=== PATIENT | male | born 1960 | race Caucasian/White ===

== ENCOUNTER → 2018-03-23 | Outpatient (CLI) | payer OTHER | END | disposition home or self-care (01) | LOC: LABWHC1 11:16 | PROVIDERS: ATTEND Midwife | DX: Z13.9 Encounter for screening, unspecified (principal) | CPT/HCPCS: 86900; 86901 ==

== ENCOUNTER 2018-07-01 12:04 | Emergency (ER) | payer OTHER ==
[2018-07-01 12:15] VITALS: RESP 18
[2018-07-01] MEDS ORDERED: DIPH,PERTUS(ACELL)TETVAC-LF 0.5 ML VIAL IM ONE (12:25)
--- NOTE | 2018-07-01 12:27 | ED ---
General Adult HPI - General Chief complaint: Extremity Injury, Upper Stated complaint: cut thumb off with saw Time Seen by Provider: 07/01/18 12:13 Source: patient Mode of arrival: ambulatory Limitations: no limitations - History of Present Illness Initial comments: Dictation was produced using [employer] dictation software. please excuse any grammatical, word or spelling errors. 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 Patient states he was operating a circular saw when the saw kicked back and cut the distal tip of his left thumb. Patient states this event occurred approximately 50 minutes prior to arrival. Patient when he pain. He did take the amputated portion and brought it with him. Patient is complaining of pain. Does not know when his last tetanus update was. The ROS documented in this emergency department record has been reviewed and confirmed by me. Those systems with pertinent positive or negative responses have been documented in the HPI. All other systems are other negative and/or noncontributory. PHYSICAL EXAM: General Impression: Alert and oriented x3, acute distress secondary to pain HEENT: Normocephalic atraumatic, extra-ocular movements intact, pupils equal and reactive to light bilaterally, mucous membranes moist. Cardiovascular: Heart regular rate and rhythm, S1&S2 audible, no murmurs, rubs or gallops Chest: Lungs clear to auscultation bilaterally, no rhonchi, no wheeze, no rales Abdomen: Bowel sounds present, abdomen soft, non-tender, non-distended, no organomegaly Musculoskeletal: Pulses present and equal in all extremities, no peripheral edema Motor: no focal deficits noted Neurological: CN II-XII grossly intact, no focal motor or sensory deficits noted Skin: Intact with no visualized rashes Psych: Normal affect and mood ED course: 57 yo male presents with traumatic amputation of the left distal thumb. Amputated portion was wrapped in gauze and soaked with normal saline. He was placed in a separate bag put on ice. Signs upon arrival are within acceptable limits. Tetanus updated. Wound was irrigated. Finger x-ray was performed showing numerous superficial fragments comminuted osseous fragments. Patient was placed in a bandage. Digital block was performed using 2% lidocaine. Patient experienced immediate relief after the digital block. Patient case was discussed in detail with ALYSIA koehler covering for Dr. Do. Recommend that patient be seen outpatient for amputation revision however did recommend patient to our local hand specialist [facility] digit reimplantation. Discussed patient case with Anne who is taking calls for Dr. Albarran recommends patient be seen outpatient for amputation revision. Discussed with patient that we can offer him transfer to [facility] were told they may be able to have a chance to reimplant is amputated finger. He requested that he just follow-up with hand specialist on Wednesday for amputation revision. Patient's tetanus was updated. Gelfoam was applied to the wound. Patient placed in a dressing. Patient given follow-up with hand specialist Dr. perdomo. Patient prescription for by mouth analgesics. Patient and family are understandable agreeable to plan and disposition. - Related Data Home Medications Medication Instructions Recorded Confirmed Multivitamins, Thera [Multivitamin 1 tab PO DAILY 07/01/18 07/01/18 (formulary)] Previous Rx's Medication Instructions Recorded HYDROcodone/APAP 5-325MG [[place] 1 tab PO Q6HR PRN 3 Days #12 tab 07/01/18 5-325] Allergies Allergy/AdvReac Type Severity Reaction Status Date / Time No Known Allergies Allergy Verified 07/01/18 12:44 Review of Systems ROS Statement: Those systems with pertinent positive or pertinent negative responses have been documented in the HPI. ROS Other: All systems not noted in ROS Statement are negative. Past Medical History Past Medical History: No Reported History History of Any Multi-Drug Resistant Organisms: None Reported Past Surgical History: No Surgical Hx Reported Past Psychological History: No Psychological Hx Reported Smoking Status: Current every day smoker Past Alcohol Use History: Daily Past Drug Use History: None Reported General Exam Limitations: no limitations Course Vital Signs 07/01/18 12:12 Temperature 97.5 F L Pulse Rate 67 Respiratory 18 Rate Blood Pressure 120/85 O2 Sat by Pulse 97 Oximetry Disposition Clinical Impression: Fingertip amputation Disposition: HOME SELF-CARE Condition: Good Instructions (If sedation given, give patient instructions): Finger Amputation (ED) Prescriptions: HYDROcodone/APAP 5-325MG [[place] 5-325] 1 tab PO Q6HR PRN 3 Days #12 tab PRN Reason: Severe Pain Is patient prescribed a controlled substance at d/c from ED?: Yes If prescribed controlled substance>3 days was MAPS reviewed?: Prescribed <3 Days Referrals: Stuart Albarran DO [Medical Doctor] - 07/04/18 Time of Disposition: 14:11
[2018-07-01] MEDS ORDERED: MORPHINE SULFATE 4 MG/ML SYRINGE IVP STA (12:39)
[2018-07-01] MEDS ORDERED: LIDOCAINE 2% INJ 20 MG/ML (20 ML MDV) SQ STA (12:45)
--- NOTE | 2018-07-01 12:52 | XR ---
EXAMINATION TYPE: XR finger LT DATE OF EXAM: 07/01/2018 COMPARISON: NONE HISTORY: Left thumb pain after injury with a saw TECHNIQUE: 3 views of the left thumb were obtained as well as a radiograph of an osseous fragment of the amputated left thumb on ice. FINDINGS: There is posttraumatic amputation of the tuft of the distal phalanx of the left first digit as well as posttraumatic indication of the surrounding soft tissues. There is comminution of the dis lizbeth fragments with superficial either osseous fragments at the palmar surface and ulnar surface or fo reign bodies. Old fracture site of the ulnar aspect of the proximal left phalanx of the thumb is also seen with very minimal degenerative change at the first carpometacarpal joint. On the second x-ray o f the amputated portion on ice there is and 11 mm osseous fragment. IMPRESSION: Osseous and soft tissue posttraumatic amputation of the distal tuft of the left first dig it with numerous remaining superficial fragments either representing comminuted osseous fragments or foreign bodies. An 11 mm this fragment is seen within the separate x-ray of the amputated fragment.
[2018-07-01] MEDS ORDERED: GELATIN SPONGE,ABSORB (LARGE) 1 EACH SPONGE TOPICAL STA (14:05)
--- NOTE | 2018-07-01 14:13 | ED ---
Disposition Clinical Impression: Fingertip amputation Disposition: HOME SELF-CARE Condition: Good Instructions (If sedation given, give patient instructions): Finger Amputation (ED) Prescriptions: Cephalexin [Keflex] 500 mg PO Q6HR 5 Days #20 cap HYDROcodone/APAP 5-325MG [[place] 5-325] 1 tab PO Q6HR PRN 3 Days #12 tab PRN Reason: Severe Pain Is patient prescribed a controlled substance at d/c from ED?: Yes If prescribed controlled substance>3 days was MAPS reviewed?: Prescribed <3 Days Referrals: Stuart Albarran DO [Medical Doctor] - 07/04/18
[2018-07-01 14:34] VITALS: BP 130/87; PULSE 59; TEMP 98.3
== END 2018-07-01 14:31 | disposition home or self-care (01) ==
LOC: EC 12:04
DX: S68.012A Complete traumatic metacarpophalangeal amputation of left thumb, initial encounter (principal); F17.200 Nicotine dependence, unspecified, uncomplicated; Z23 Encounter for immunization; W31.2XXA Contact with powered woodworking and forming machines, initial encounter
CPT/HCPCS: 73140; 90715; 99284; 64450; 96374; 90471; J2001; J2270

== ENCOUNTER → 2019-04-15 | Outpatient (CLI) | payer OTHER ==
[2019-04-15 08:57] LABS: Basophils # (A) 0.1 k/uL (0-0.2); Basophils % (A) 1 %; Eosinophils # (A) 0.2 k/uL (0-0.7); Eosinophils % (A) 4 %; HCT 54.6 % (39.0-53.0); HGB 18.2 gm/dL (13.0-17.5); Lymphocytes # (A) 1.7 k/uL (1.0-4.8); Lymphocytes % (A) 30 %; MCH 33.5 pg (25.0-35.0); MCHC 33.4 g/dL (31.0-37.0); MCV 100.3 fL (80.0-100.0); Mean Platelet Volume 7.6; Monocytes # (A) 0.5 k/uL (0-1.0); Monocytes % (A) 9 %; Neutrophils # (A) 3.1 k/uL (1.3-7.7); Neutrophils % (A) 54 %; Platelet Count 241 k/uL (150-450); RBC 5.44 m/uL (4.30-5.90); RDW 11.8 % (11.5-15.5); WBC 5.7 k/uL (3.8-10.6)
--- NOTE | 2019-04-15 14:10 | XR ---
EXAMINATION TYPE: XR chest 2V DATE OF EXAM: 04/15/2019 COMPARISON: 06/28/2009 HISTORY: COPD. Short of breath TECHNIQUE: FINDINGS: There is no heart failure nor confluent pneumonic infiltrate. Costophrenic angles are clear . Bony thorax is intact. There is old left-sided healed rib fracture. There is mild flattening of the diaphragm. IMPRESSION: There is probably some COPD. No acute lung disease. Normal heart. No change.
[2019-04-15 17:35] LABS: ALT 25 U/L (10-49); AST 27 U/L (14-35); African American GFR (CKD) 113.3 (60.0-200.0); Albumin/Globulin Ratio 2.15 (1.60-3.17); Alkaline Phosphatase 74 U/L (41-126); BUN/Creat Ratio 18.75 Ratio (12.00-20.00); Calcium 9.2 mg/dL (8.7-10.3); Chloride 104 mmol/L (96-109); Chol/HDL Ratio 2.35; Cholesterol 155 mg/dL (0-200); Glucose 89 mg/dL (70-110); Non-African American GFR(CKD) 97.8 (60.0-200.0); Potassium 4.7 mmol/L (3.5-5.5); Sodium 138 mmol/L (135-145); Total Bilirubin 0.6 mg/dL (0.3-1.2); Total Protein 6.3 g/dL (6.2-8.2); Triglycerides <50.0 mg/dL (0.0-149.0)
== END ==
LOC: LABWHC1 08:17
PROVIDERS: ATTEND Family Medicine
DX: J44.9 Chronic obstructive pulmonary disease, unspecified (principal); Z00.00 Encounter for general adult medical examination without abnormal findings; Z12.5 Encounter for screening for malignant neoplasm of prostate
CPT/HCPCS: 84439; 80061; 80053; 84443; 85025; 71046; 36415; G0103

== ENCOUNTER → 2020-02-12 | Outpatient (CLI) | payer OTHER | END | disposition home or self-care (01) | LOC: LABWHC1 14:42 | PROVIDERS: ATTEND Emergency Medicine | DX: Z20.828 Contact with and (suspected) exposure to other viral communicable diseases (principal) | CPT/HCPCS: U0003; C9803 ==

== ENCOUNTER → 2020-05-07 | Outpatient (CLI) | payer SELFPAY | END | disposition home or self-care (01) | LOC: LABWHC1 15:35 | PROVIDERS: ATTEND Emergency Medicine | DX: Z20.822 Contact with and (suspected) exposure to COVID-19 (principal) | CPT/HCPCS: U0003; C9803 ==

== ENCOUNTER 2020-05-13 09:55 | Observation (INO) | payer OTHER ==
--- NOTE | 2020-05-13 10:46 | ED ---
Fall HPI - General Chief Complaint: Fall Stated Complaint: syncope/hit head Time Seen by Provider: 05/13/20 10:15 Source: patient, family Mode of arrival: ambulatory - History of Present Illness Initial Comments: 59-year-old male presents today for chief complaint of syncopal episode. Patient states that this past Wednesday he had an episode where he was going to the bathroom and the next thing he remembers is waking up in the bathtub he states it appears that he fell backwards into the tub he states it is sore spot on the back his head and believes he struck it. He denies any neck pain nausea vomiting headache since. He states he has had occasional lightheadedness denies a specific pattern such as going from seated to standing. Patient denies any chest pain shortness of breath. Deep inspiration leg swelling or calf pain. Patient denies any history of cancer hemoptysis he denies any known cardiac disease. Patient states he has never day smoker. Denies any nausea vomiting abdominal pain mid or low back pain. Patient denies injury to the extremities. Pt states that his mother had lung cancer and a brain blood clot and he is concerned maybe something similar is occuring and thus came to ER> patient denies any localized weakness localized sensation deficit speech changes diplopia, vision loss. He states at times it seems blurred when he is lightheaded but not occurring currently. - Related Data Home Medications Medication Instructions Recorded Confirmed Albuterol Sulfate [Proair Hfa] 2 puff INHALATION RT-QID PRN 05/13/20 05/13/20 Tiotropium [place] [Spiriva] 1 cap INHALATION RT-DAILY 05/13/20 05/13/20 lisinopriL [Zestril] 10 mg PO DAILY 05/13/20 05/13/20 Allergies Allergy/AdvReac Type Severity Reaction Status Date / Time No Known Allergies Allergy Verified 05/13/20 10:54 Review of Systems ROS Statement: Those systems with pertinent positive or pertinent negative responses have been documented in the HPI. ROS Other: All systems not noted in ROS Statement are negative. Past Medical History Past Medical History: Hypertension History of Any Multi-Drug Resistant Organisms: None Reported Past Surgical History: No Surgical Hx Reported Past Psychological History: No Psychological Hx Reported Smoking Status: Current every day smoker Past Alcohol Use History: Daily Past Drug Use History: None Reported General Exam - General Exam Comments Initial Comments: General: The patient is awake and alert, in no distress Eye: Pupils are equal, round and reactive to light, extra-ocular movements are intact. No nystagmus. There is normal conjunctiva bilaterally. No signs of icterus. Ears, nose, mouth and throat: There are moist mucous membranes and no oral lesions. No raccoon or Amador sign Neck: The neck is supple, there is no tenderness or JVD. Cardiovascular: There is a regular rate and rhythm. No murmur, rub or gallop is appreciated. Respiratory: Lungs are clear to auscultation, respirations are non-labored, breath sounds are equal. No wheezes, stridor, rales, or rhonchi. Gastrointestinal: Soft, non-distended, non-tender abdomen without masses or organomegaly noted. There is no rebound or guarding present. No CVA tenderness. Musculoskeletal: Normal ROM, no tenderness. Strength 5/5. Sensation intact. Pulses equal bilaterally 2+. Neurological: A&O x 3. CN II-XII intact, There are no obvious motor or sensory deficits. Coordination appears grossly intact. Speech is normal. Skin: Skin is warm and dry and no rashes or lesions are noted. no midline tenderness or lesion of the cervical spine with full range of motion. No calf pain, no lower extremity swelling or calf swelling Psychiatric: Cooperative, appropriate mood & affect, normal judgment. 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 Pt does use ETOH. pt CXR clear. Troponin (-). Denies chest pain or dyspnea. pt CT brain c-spine (-) .no pain with rom of c-spine nor midline tenderness. patient case discussed with attending and PCP Reyes Downing who are agreeable to admission for cardiology consultation. Consultation placed and patient is agreeable to admission. - Lab Data Result diagrams: 05/13/20 11:47 05/13/20 10:42 Lab Results 05/13/20 05/13/20 05/13/20 Range/Units 10:42 10:42 10:42 WBC 6.2 (3.8-10.6) k/uL RBC 5.72 (4.30-5.90) m/uL Hgb 19.0 H (13.0-17.5) gm/dL Hct 57.2 H* (39.0-53.0) % MCV 100.0 (80.0-100.0) fL MCH 33.1 (25.0-35.0) pg MCHC 33.2 (31.0-37.0) g/dL RDW 12.8 (11.5-15.5) % Plt Count 222 (150-450) k/uL MPV 7.9 Neutrophils % 56 % Lymphocytes % 29 % Monocytes % 11 % Eosinophils % 2 % Basophils % 1 % Neutrophils # 3.4 (1.3-7.7) k/uL Lymphocytes # 1.8 (1.0-4.8) k/uL Monocytes # 0.7 (0-1.0) k/uL Eosinophils # 0.1 (0-0.7) k/uL Basophils # 0.1 (0-0.2) k/uL PT (9.0-12.0) sec INR (<1.2) APTT (22.0-30.0) sec D-Dimer (<0.60) mg/L FEU Sodium 137 (137-145) mmol/L Potassium 4.7 (3.5-5.1) mmol/L Chloride 102 (98-107) mmol/L Carbon Dioxide 26 (22-30) mmol/L Anion Gap 9 mmol/L BUN 15 (9-20) mg/dL Creatinine 0.79 (0.66-1.25) mg/dL Est GFR (CKD-EPI)AfAm >90 (>60 ml/min/1.73 sqM) Est GFR (CKD-EPI)NonAf >90 (>60 ml/min/1.73 sqM) Glucose 82 (74-99) mg/dL Calcium 9.5 (8.4-10.2) mg/dL Magnesium 2.1 (1.6-2.3) mg/dL Total Bilirubin 1.3 (0.2-1.3) mg/dL AST 36 (17-59) U/L ALT 27 (4-49) U/L Alkaline Phosphatase 66 (38-126) U/L Troponin I <0.012 (0.000-0.034) ng/mL Total Protein 7.6 (6.3-8.2) g/dL Albumin 4.6 (3.5-5.0) g/dL Urine Color Urine Appearance (Clear) Urine pH (5.0-8.0) Ur Specific [place] (1.001-1.035) Urine Protein (Negative) Urine Glucose (UA) (Negative) Urine Ketones (Negative) Urine Blood (Negative) Urine Nitrite (Negative) Urine Bilirubin (Negative) Urine Urobilinogen (<2.0) mg/dL Ur Leukocyte Esterase (Negative) 05/13/20 05/13/20 05/13/20 Range/Units 11:23 11:47 12:00 WBC 6.0 (3.8-10.6) k/uL RBC 5.47 (4.30-5.90) m/uL Hgb 18.6 H (13.0-17.5) gm/dL Hct 54.6 H (39.0-53.0) % MCV 99.9 (80.0-100.0) fL MCH 34.1 (25.0-35.0) pg MCHC 34.1 (31.0-37.0) g/dL RDW 12.4 (11.5-15.5) % Plt Count 220 (150-450) k/uL MPV 7.3 Neutrophils % % Lymphocytes % % Monocytes % % Eosinophils % % Basophils % % Neutrophils # (1.3-7.7) k/uL Lymphocytes # (1.0-4.8) k/uL Monocytes # (0-1.0) k/uL Eosinophils # (0-0.7) k/uL Basophils # (0-0.2) k/uL PT 10.2 (9.0-12.0) sec INR 0.9 (<1.2) APTT 23.5 (22.0-30.0) sec D-Dimer (<0.60) mg/L FEU Sodium (137-145) mmol/L Potassium (3.5-5.1) mmol/L Chloride (98-107) mmol/L Carbon Dioxide (22-30) mmol/L Anion Gap mmol/L BUN (9-20) mg/dL Creatinine (0.66-1.25) mg/dL Est GFR (CKD-EPI)AfAm (>60 ml/min/1.73 sqM) Est GFR (CKD-EPI)NonAf (>60 ml/min/1.73 sqM) Glucose (74-99) mg/dL Calcium (8.4-10.2) mg/dL Magnesium (1.6-2.3) mg/dL Total Bilirubin (0.2-1.3) mg/dL AST (17-59) U/L ALT (4-49) U/L Alkaline Phosphatase (38-126) U/L Troponin I (0.000-0.034) ng/mL Total Protein (6.3-8.2) g/dL Albumin (3.5-5.0) g/dL Urine Color Yellow Urine Appearance Clear (Clear) Urine pH 6.5 (5.0-8.0) Ur Specific [place] 1.018 (1.001-1.035) Urine Protein Negative (Negative) Urine Glucose (UA) Negative (Negative) Urine Ketones 1+ H (Negative) Urine Blood Negative (Negative) Urine Nitrite Negative (Negative) Urine Bilirubin Negative (Negative) Urine Urobilinogen <2.0 (<2.0) mg/dL Ur Leukocyte Esterase Negative (Negative) 05/13/20 Range/Units 12:00 WBC (3.8-10.6) k/uL RBC (4.30-5.90) m/uL Hgb (13.0-17.5) gm/dL Hct (39.0-53.0) % MCV (80.0-100.0) fL MCH (25.0-35.0) pg MCHC (31.0-37.0) g/dL RDW (11.5-15.5) % Plt Count (150-450) k/uL MPV Neutrophils % % Lymphocytes % % Monocytes % % Eosinophils % % Basophils % % Neutrophils # (1.3-7.7) k/uL Lymphocytes # (1.0-4.8) k/uL Monocytes # (0-1.0) k/uL Eosinophils # (0-0.7) k/uL Basophils # (0-0.2) k/uL PT (9.0-12.0) sec INR (<1.2) APTT (22.0-30.0) sec D-Dimer 1.35 H (<0.60) mg/L FEU Sodium (137-145) mmol/L Potassium (3.5-5.1) mmol/L Chloride (98-107) mmol/L Carbon Dioxide (22-30) mmol/L Anion Gap mmol/L BUN (9-20) mg/dL Creatinine (0.66-1.25) mg/dL Est GFR (CKD-EPI)AfAm (>60 ml/min/1.73 sqM) Est GFR (CKD-EPI)NonAf (>60 ml/min/1.73 sqM) Glucose (74-99) mg/dL Calcium (8.4-10.2) mg/dL Magnesium (1.6-2.3) mg/dL Total Bilirubin (0.2-1.3) mg/dL AST (17-59) U/L ALT (4-49) U/L Alkaline Phosphatase (38-126) U/L Troponin I (0.000-0.034) ng/mL Total Protein (6.3-8.2) g/dL Albumin (3.5-5.0) g/dL Urine Color Urine Appearance (Clear) Urine pH (5.0-8.0) Ur Specific [place] (1.001-1.035) Urine Protein (Negative) Urine Glucose (UA) (Negative) Urine Ketones (Negative) Urine Blood (Negative) Urine Nitrite (Negative) Urine Bilirubin (Negative) Urine Urobilinogen (<2.0) mg/dL Ur Leukocyte Esterase (Negative) Disposition Clinical Impression: Syncope Disposition: ADMITTED IP TO THIS [facility] Condition: Stable Is patient prescribed a controlled substance at d/c from ED?: No Time of Disposition: 12:19 Decision to Admit Reason: Admit from EC Decision Date: 05/13/20 Decision Time: 12:19
[2020-05-13 11:03] LABS: ALT 27 U/L (4-49); African American GFR (CKD) >90 (>60 ml/min/1.73 sqM); Albumin 4.6 g/dL (3.5-5.0); Anion Gap 9 mmol/L; Blood Urea Nitrogen 15 mg/dL (9-20); Calcium 9.5 mg/dL (8.4-10.2); Carbon Dioxide 26 mmol/L (22-30); Chloride 102 mmol/L (98-107); Glucose 82 mg/dL (74-99); Non-African American GFR(CKD) >90 (>60 ml/min/1.73 sqM); Sodium 137 mmol/L (137-145); Total Bilirubin 1.3 mg/dL (0.2-1.3); Total Protein 7.6 g/dL (6.3-8.2)
[2020-05-13 11:04] LABS: AST 36 U/L (17-59); Magnesium 2.1 mg/dL (1.6-2.3); Potassium 4.7 mmol/L (3.5-5.1)
[2020-05-13 11:05] LABS: Alkaline Phosphatase 66 U/L (38-126)
[2020-05-13 11:10] LABS: Basophils # (A) 0.1 k/uL (0-0.2); Basophils % (A) 1 %; Eosinophils # (A) 0.1 k/uL (0-0.7); Eosinophils % (A) 2 %; Lymphocytes # (A) 1.8 k/uL (1.0-4.8); Lymphocytes % (A) 29 %; MCH 33.1 pg (25.0-35.0); MCHC 33.2 g/dL (31.0-37.0); Mean Platelet Volume 7.9; Monocytes # (A) 0.7 k/uL (0-1.0); Monocytes % (A) 11 %; Neutrophils # (A) 3.4 k/uL (1.3-7.7); Neutrophils % (A) 56 %; Platelet Count 222 k/uL (150-450); RBC 5.72 m/uL (4.30-5.90); RDW 12.8 % (11.5-15.5); WBC 6.2 k/uL (3.8-10.6)
[2020-05-13 11:18] LABS: HCT 57.2 % (39.0-53.0)
--- NOTE | 2020-05-13 11:29 | XR ---
EXAMINATION TYPE: XR chest 2V DATE OF EXAM: 05/13/2020 COMPARISON: 04/15/2019 HISTORY: 59-year-old male with syncope TECHNIQUE: PA and lateral views FINDINGS: The cardiomediastinal silhouette, aorta, and pulmonary vasculature are within normal limits. Lungs an d pleural spaces are clear. IMPRESSION: No acute cardiopulmonary process.
--- NOTE | 2020-05-13 11:30 | CT ---
EXAMINATION TYPE: CT brain aniceto tolliver DATE OF EXAM: 05/13/2020 COMPARISON: None HISTORY: syncopeal fall off of toilet into bathtub CT DLP: [address] of the brain was performed. The ventricles, basal cisterns and sulci overlying the cerebral convexities demonstrate mild enlargem ent. There is no evidence for intracranial hemorrhage or sulcal effacement. There is decreased attenuatio n about the periventricular white matter and deep white matter of both cerebral hemispheres, compatib le with chronic small vessel ischemia. No mass effects are seen. If symptoms persist consider MRI. Osseous calvarium is intact. IMPRESSION: 1. Age related atrophic and chronic small vessel ischemic change without acute intracranial process seen at this time. CT Cervical Spine: Unenhanced CT of the cervical spine was performed with bone and soft tissue window settings submitted . Coronal and sagittal reconstruction is obtained. There is normal alignment and prevertebral soft tissues. No evidence for acute cervical fracture . Se ismael multilevel degenerative disc space narrowing and spondylosis. Biapical scarring. IMPRESSION: 1. No evidence for acute fracture or subluxation of the cervical spine.
[2020-05-13 11:31] LABS: Appearance,Urine Clear (Clear); Bilirubin,Urine Negative (Negative); Blood,Urine Negative (Negative); Color,Urine Yellow; Glucose,Urine (UA) Negative (Negative); Ketones,Urine 1+ (Negative); Leukocyte Esterase,Urine Negative (Negative); Nitrite,Urine Negative (Negative); PH, Urine 6.5 (5.0-8.0); Protein,Urine Negative (Negative); Specific Gravity,Urine 1.018 (1.001-1.035); Urobilinogen,Urine <2.0 mg/dL (<2.0)
[2020-05-13 11:54] LABS: HCT 54.6 % (39.0-53.0); HGB 18.6 gm/dL (13.0-17.5); MCH 34.1 pg (25.0-35.0); MCHC 34.1 g/dL (31.0-37.0); MCV 99.9 fL (80.0-100.0); Mean Platelet Volume 7.3; Platelet Count 220 k/uL (150-450); RBC 5.47 m/uL (4.30-5.90); RDW 12.4 % (11.5-15.5)
[2020-05-13] MEDS ORDERED: NALOXONE 0.4 MG/ML 1 ML VIAL IV PRN (12:18)
[2020-05-13 12:38] LABS: INR 0.9 (<1.2); Partial Thromboplastin Time 23.5 sec (22.0-30.0); Prothrombin Time 10.2 sec (9.0-12.0)
[2020-05-13] MEDS ORDERED: ALBUTEROL NEBULIZED 2.5 MG/3 ML INHALATION PRN (13:27)
--- NOTE | 2020-05-13 13:56 | P.CRDCN ---
History of Present Illness History of present illness: HISTORY OF PRESENTING ILLNESS This is a pleasant 59-year-old male past medical history significant for hypertension, chronic nicotine dependence and daily heavy alcohol use. He denies prior history of coronary artery disease and does not follow in the office with a entry level chemist. We have been asked to see in consultation for syncope. He states Wednesday night around 0100 he woke up to use the restroom. He walked into the bathroom and was standing at the toilet. The next thing he remembers he woke up on the floor. He apparently fell backwards into the shower hitting his head on posterior aspect of this head and then the lateral left eye region. He denies feeling chest pain, shortness of breath, dizziness, nausea, vomiting or palpitations. He was not disoriented or confused when he woke up. He had no seizure like activity or loss of bowel/bladder control. This also occurr ed in a similar fashion approximately 6 months ago. DIAGNOSTICS EKG reveals sinus mechanism with heart rate 65. Chest xray negative for an acute cardiopulmonary process. Laboratory reviewed, WBC 6, hgb 18.6, plt 220. d-dimer 1.35, sodium 137, potassium 4.7, magnesium 2.1, creatinine 0.79, cardiac enzymes negative x1. He is not currently taking any daily medications. He is supposed to be on somet ivana for his blood pressure, however is non-compliant. REVIEW OF SYSTEMS At the time of my exam: CONSTITUTIONAL: Denies fever or chills. CARDIOVASCULAR: Denies chest pain, shortness of breath, orthopnea, PND or palpitations. RESPIRATORY: Denies cough. GASTROINTESTINAL: Denies abdominal pain, diarrhea, constipation, nausea or vomiting. MUSCULOSKELETAL: Denies myalgias. NEUROLOGIC: Denies numbness, tingling, headacbe or weakness. ENDOCRINE: Denies fatigue, weight change, polydipsia or polyurina. GENITOURINARY: Denies burning, hematuria or urgency with micturation. HEMATOLOGIC: Denies history of anemia or bleeding. PHYSICAL EXAMINATION Blood pressure 139/72 heart rate 62 afebrile and maintaining oxygen saturation on room air. CONSTITUTIONAL: No apparent distress. Appears older than stated age. HEENT: Head is normocephalic. Pupils are equal, round. Sclerae anicteric. Mucous membranes of the mouth are moist. No JVD. No carotid bruit. CHEST EXAMINATION: Course sounding with inspiratory and expiratory wheezes. No chest wall tenderness is noted on palpation or with deep breathing. HEART EXAMINATION: Regular rate and rhythm. S1, S2 heard. No murmurs, gallops or rub. ABDOMEN: Soft, nontender. Positive bowel sounds. EXTREMITIES: 2+ peripheral pulses, no lower extremity edema and no calf tenderness. NEUROLOGIC EXAMINATION: Patient is awake, alert and oriented x3. ASSESSMENT Syncope Hypertension Chronic nicotine dependence Daily excessive alcohol abuse Medication non-compliance PLAN Obtain 2D echocardiogram and doppler study to assess cardiac structure and function. Check d-dimer and CTA if elevated. Syncope likely related to drop in blood pressure with getting up both times in the middle of the night. Which is exacerbated by his heavy drinking causing lower vasodilitation and worsening ortostatic hypotension. Recommend alcohol and tobacco cessation. Clinically stable for discharge from a cardiac perspective. Follow up in the office with Dr. Hernandez in 2 weeks for further outpatient testing. Thank you kindly for this consultation. Nurse Practitioner note has been reviewed, I agree with a documented findings and plan of care. Patient was seen and examined. Past Medical History Past Medical History: Hypertension History of Any Multi-Drug Resistant Organisms: None Reported Past Surgical History: No Surgical Hx Reported Past Psychological History: No Psychological Hx Reported Smoking Status: Current every day smoker Past Alcohol Use History: Daily Past Drug Use History: None Reported Medications and Allergies Home Medications Medication Instructions Recorded Confirmed Type Albuterol Sulfate [Proair Hfa] 2 puff INHALATION RT-QID PRN 05/13/20 05/13/20 History Tiotropium [place] [Spiriva] 1 cap INHALATION RT-DAILY 05/13/20 05/13/20 History lisinopriL [Zestril] 10 mg PO DAILY 05/13/20 05/13/20 History Allergies Allergy/AdvReac Type Severity Reaction Status Date / Time No Known Allergies Allergy Verified 05/13/20 10:54 Physical Exam Vitals: Vital Signs Temp Pulse Pulse Resp BP BP BP 05/13/20 12:17 67 18 147/92 122/96 05/13/20 12:16 72 18 05/13/20 11:00 72 18 137/97 05/13/20 10:30 68 18 137/93 05/13/20 10:06 98.4 F 69 18 155/90 BP Pulse Ox 05/13/20 12:17 98 02/08/21 12:16 129/82 05/13/20 11:00 100 05/13/20 10:30 97 05/13/20 10:06 98 Intake and Output 05/12/20 05/13/20 05/13/20 22:59 06:59 14:59 Other: Weight 83.915 kg Results 05/13/20 11:47 05/13/20 10:42 Cardiac Enzymes 05/13/20 05/13/20 Range/Units 10:42 10:42 AST 36 (17-59) U/L Troponin I <0.012 (0.000-0.034) ng/mL Coagulation 05/13/20 Range/Units 12:00 PT 10.2 (9.0-12.0) sec APTT 23.5 (22.0-30.0) sec CBC 05/13/20 05/13/20 Range/Units 10:42 11:47 WBC 6.2 6.0 (3.8-10.6) k/uL RBC 5.72 5.47 (4.30-5.90) m/uL Hgb 19.0 H 18.6 H (13.0-17.5) gm/dL Hct 57.2 H* 54.6 H (39.0-53.0) % Plt Count 222 220 (150-450) k/uL Comprehensive Metabolic Panel 05/13/20 Range/Units 10:42 Sodium 137 (137-145) mmol/L Potassium 4.7 (3.5-5.1) mmol/L Chloride 102 (98-107) mmol/L Carbon Dioxide 26 (22-30) mmol/L BUN 15 (9-20) mg/dL Creatinine 0.79 (0.66-1.25) mg/dL Glucose 82 (74-99) mg/dL Calcium 9.5 (8.4-10.2) mg/dL AST 36 (17-59) U/L ALT 27 (4-49) U/L Alkaline Phosphatase 66 (38-126) U/L Total Protein 7.6 (6.3-8.2) g/dL Albumin 4.6 (3.5-5.0) g/dL Current Medications Generic Name Dose Route Start Last Admin Trade Name Freq PRN Reason Stop Dose Admin Albuterol Sulfate 2.5 mg 05/13/20 13:27 Albuterol Nebulized 2.5 Mg/3 Ml INHALATION RT-QID PRN Shortness Of Breath Ipratropium [place] 0.5 mg 05/14/20 08:00 Ipratropium 0.5 Mg/2.5 Ml Nebu INHALATION RT-QID RAN Lisinopril 10 mg 05/14/20 09:00 Lisinopril 10 Mg Tab PO DAILY [facility] Naloxone HCl 0.2 mg 05/13/20 12:18 Naloxone 0.4 Mg/Ml 1 Ml Vial IV Q2M PRN Opioid Reversal Intake and Output 05/12/20 05/13/20 05/13/20 22:59 06:59 14:59 Other: Weight 83.915 kg Patient Weight 05/14/20 06:59 Weight 83.915 kg 05/13/20 11:47 05/13/20 10:42
--- NOTE | 2020-05-13 15:30 | CT ---
EXAMINATION TYPE: CT angio chest DATE OF EXAM: 05/13/2020 COMPARISON: None HISTORY: Elevated d-dimer. CT DLP: 407.4 mGycm CONTRAST: CT chest with contrast and 3D reconstruction with MIP imaging is performed with IV Contrast, patient injected with 100 mL of Isovue 370. Contrast-enhanced CT of the chest was performed through the course of the pulmonary arteries with yared g and mediastinal window settings submitted. 3D reconstruction with MIP imaging was also performed. PULMONARY ARTERIES: The pulmonary arteries and their major tributaries are patent. I do not see karla dence for sizable filling defect to suggest pulmonary embolic process. LUNGS: The lungs are clear and free of infiltrate. No evidence for atelectasis. No pulmonary nodule or mass is detected. No pleural effusion. MEDIASTINUM: Thoracic aorta is of normal caliber,however, evaluation is limited given timing of the contrast bolus. If there is concern for thoracic aortic pathology consider NIKHIL. Correlate clinicall y . The heart is not enlarged. No evidence for mediastinal mass. No mediastinal lymph nodes greater than 1cm. HILAR STRUCTURES: No evidence for mass. No hilar lymph nodes greater than 1 cm. UPPER ABDOMEN: No significant abnormality is seen. IMPRESSION: 1. No evidence for Pulmonary embolism at this time.
--- NOTE | 2020-05-13 21:53 | US ---
EXAMINATION TYPE: US carotid duplex BILAT DATE OF EXAM: 05/13/2020 COMPARISON: CT 2020 CLINICAL HISTORY: syncopal. Syncope. Current smoker. EXAM MEASUREMENTS: RIGHT: Peak Systolic Velocity (PSV) cm/sec ----- Right CCA: 87.1 ----- Right ICA: 91.0 ----- Right ECA: 102.6 ICA/CCA ratio: 1.0 RIGHT: End Diastole cm/sec ----- Right CCA: 22.4 ----- Right ICA: 26.3 ----- Right ECA: 24.1 LEFT: Peak Systolic Velocity (PSV) cm/sec ----- Left CCA: 66.6 ----- Left ICA: 82.6 ----- Left ECA: 93.0 ICA/CCA ratio: 1.2 LEFT: End Diastole cm/sec ----- Left CCA: 16.8 ----- Left ICA: 29.4 ----- Left ECA: 17.2 VERTEBRALS (direction of flow): Right Vertebral: Antegrade Left Vertebral: Antegrade Rhythm: Normal Intimal thickening seen bilaterally. Right ICA courses quickly posterior. Limited evaluation of right ICA due to tortuosity. No elevated velocities at this time. Hypoechoic area with hyperechoic center seen in the left neck measuring 0.9 x 0.8 x 0.6 cm. IMPRESSION: No hemodynamically significant stenosis of the bilateral ICAs. Nonspecific small 0.9 cm hyperechoic mass within the left neck, appears to be a nonenlarged lymph nod e. CT correlation may be obtained as clinically indicated. Criteria for Assigning % of Stenosis / Diameter reduction (Estimation based on the indirect measurements of the internal carotid artery velocities (ICA PSV). 1. Normal (no stenosis)=ICA PSV < 125 cm/s: ratio < 2.0: ICA EDV<40 cm/s. 2. Less than 50% stenosis=ICA PSV < 125 cm/s: ratio < 2.0: ICA EDV<40 cm/s. 3. 50 to 69% stenosis=ICA PSV of 125 to 230 cm/s: ration 2.0 ? 4.0: ICA EDV 40-100 cm/s. 4. Greater than 70% stenosis to near occlusion= ICA PSV > 230 cm/s: ratio > 4.0: ICA EDV > 100 cm/s. 5. Near occlusion= ICA PSV velocities may be low or undetectable: variable ratio and ICA EDV. 6. Total occlusion=unable to detect flow.
[2020-05-14 05:45] LABS: Basophils # (A) 0.1 k/uL (0-0.2); Basophils % (A) 1 %; Eosinophils # (A) 0.3 k/uL (0-0.7); Eosinophils % (A) 5 %; HCT 54.4 % (39.0-53.0); HGB 18.6 gm/dL (13.0-17.5); Lymphocytes # (A) 1.7 k/uL (1.0-4.8); Lymphocytes % (A) 29 %; MCH 34.2 pg (25.0-35.0); MCHC 34.1 g/dL (31.0-37.0); MCV 100.3 fL (80.0-100.0); Mean Platelet Volume 7.4; Monocytes # (A) 0.7 k/uL (0-1.0); Monocytes % (A) 12 %; Neutrophils # (A) 2.9 k/uL (1.3-7.7); Neutrophils % (A) 50 %; Platelet Count 195 k/uL (150-450); RBC 5.43 m/uL (4.30-5.90); RDW 12.3 % (11.5-15.5); WBC 5.8 k/uL (3.8-10.6)
[2020-05-14 06:17] LABS: ALT 23 U/L (4-49); AST 30 U/L (17-59); African American GFR (CKD) >90 (>60 ml/min/1.73 sqM); Albumin 3.7 g/dL (3.5-5.0); Albumin/Globulin Ratio 1.4; Alkaline Phosphatase 55 U/L (38-126); Anion Gap 3 mmol/L; Blood Urea Nitrogen 15 mg/dL (9-20); Calcium 8.9 mg/dL (8.4-10.2); Carbon Dioxide 30 mmol/L (22-30); Chloride 100 mmol/L (98-107); Globulin 2.6 g/dL; Glucose 96 mg/dL (74-99); Magnesium 2.1 mg/dL (1.6-2.3); Non-African American GFR(CKD) >90 (>60 ml/min/1.73 sqM); Potassium 4.7 mmol/L (3.5-5.1); Sodium 133 mmol/L (137-145); Total Bilirubin 1.3 mg/dL (0.2-1.3); Total Protein 6.3 g/dL (6.3-8.2)
[2020-05-14 07:35] VITALS: RESP 16
[2020-05-14] MEDS: IPRATROPIUM 0.5 MG/2.5 ML NEBU INHALATION SCH ×3 (07:49→15:35)
[2020-05-14] MEDS ORDERED: lisinopriL 10 MG TAB PO SCH (09:00)
--- NOTE | 2020-05-14 09:51 | P.HPIM ---
History of Present Illness H&P Date: 05/14/20 Chief Complaint: Syncope 59-year-old male was sent to the emergency department for further evaluation of 2 syncopal episodes with the last 2 weeks with associated left periorbital ecchymosis and temporal mandibular tenderness and with associated symptoms of nausea, blurred vision, and lightheadedness. he had extensive diagnostic workup in the emergency department revealing no acute changes with diagnostics. Cardiology consult due to syncopal episodesechocardiogram and CTA of the chest were ordered through cardiology pending echocardiogram evaluated patient this a.m. patient ambulating throughout room.patient denies any complaints at this time Review of Systems Constitutional: Reports as per HPI Ears, nose, mouth and throat: Reports as per HPI Cardiovascular: Reports as per HPI Respiratory: Reports dyspnea (With moderate exertion) Gastrointestinal: Reports as per HPI Genitourinary: Reports as per HPI Musculoskeletal: Reports as per HPI Integumentary: Reports pruritus (Scattered) Neurological: Reports as per HPI Psychiatric: Reports as per HPI Endocrine: Reports as per HPI Hematologic/Lymphatic: Reports as per HPI Past Medical History Past Medical History: COPD, GERD/Reflux, Hypertension, Syncope Additional Past Medical History / Comment(s): Pt states he had a syncopal epis ode Wednesday morning at 0100 when he got up to use the bathroom/he fell into the tub and struck his head. Other hx: Wheezy at times but does not recall being diagnosed with any lung problems, syncopal episode about 6 moths ago, epistaxis one week ago. History of Any Multi-Drug Resistant Organisms: None Reported Past Surgical History: No Surgical Hx Reported Additional Past Surgical History / Comment(s): Pt has never had surgery. Past Anesthesia/Blood Transfusion Reactions: Unable to Obtain Additional Past Anesthesia/Blood Transfusion Reaction / Comment(s): Pt has never had surgery. Smoking Status: Current every day smoker - Past Family History Father Family Medical History: Deep Vein Thrombosis (DVT) Mother Family Medical History: Cancer Additional Family Medical History / Comment(s): Mother had lung cancer and breast cancer. Medications and Allergies Home Medications and Allergies Comment(s): Medications and ALLERGIES reviewed Home Medications Medication Instructions Recorded Confirmed Type Albuterol Sulfate [Proair Hfa] 2 puff INHALATION RT-QID PRN 05/13/20 05/13/20 History Tiotropium [place] [Spiriva] 1 cap INHALATION RT-DAILY 05/13/20 05/13/20 History lisinopriL [Zestril] 10 mg PO DAILY 05/13/20 05/13/20 History Allergies Allergy/AdvReac Type Severity Reaction Status Date / Time No Known Allergies Allergy Verified 05/13/20 10:54 Physical Exam Vitals: Vital Signs Temp Pulse Pulse Pulse Resp BP BP 05/14/20 08:00 16 05/14/20 07:32 97.8 F 69 16 134/85 05/14/20 01:54 97.8 F 58 L 18 05/13/20 20:52 98.1 F 64 18 05/13/20 13:42 98.1 F 62 14 139/72 05/13/20 12:17 67 18 147/92 05/13/20 12:16 72 18 05/13/20 11:00 72 18 137/97 05/13/20 10:30 68 18 137/93 05/13/20 10:06 98.4 F 69 18 155/90 BP BP Pulse Ox 05/14/20 08:00 05/14/20 07:32 99 05/14/20 01:54 112/69 98 05/13/20 20:52 125/74 93 L 05/13/20 13:42 99 05/13/20 12:17 122/96 98 05/13/20 12:16 129/82 05/13/20 11:00 100 05/13/20 10:30 97 05/13/20 10:06 98 Intake and Output 05/13/20 05/14/20 05/14/20 22:59 06:59 14:59 Other: # Voids 2 2 - Constitutional General appearance: cooperative - EENT Eyes: EOMI, PERRLA Ears: bilateral: normal - Neck Neck: normal ROM Carotids: bilateral: upstroke normal Thyroid: bilateral: normal size - Respiratory Respiratory: bilateral: wheezing (Scattered expiratory wheezes throughout anterior and posterior lung ch) - Cardiovascular Heart rate: 84 Rhythm: regular Heart sounds: normal: S1, S2 dorsalis pedis Peripheral Pulses: bilateral: Normal radial pulse Peripheral Pulses: bilateral: Normal - Gastrointestinal General gastrointestinal: normal bowel sounds - Integumentary Integumentary: normal turgor - Neurologic Neurologic: CNII-XII intact - Musculoskeletal Musculoskeletal: gait normal - Psychiatric Psychiatric: A&O x's 3, appropriate affect, intact judgment & insight Results CBC & Chem 7: 05/14/20 05:13 05/14/20 05:13 Labs: Abnormal Lab Results - Last 24 Hours (Table) 05/13/20 05/13/20 05/13/20 Range/Units 10:42 11:23 11:47 Hgb 19.0 H 18.6 H (13.0-17.5) gm/dL Hct 57.2 H* 54.6 H (39.0-53.0) % MCV (80.0-100.0) fL D-Dimer (<0.60) mg/L FEU Sodium (137-145) mmol/L Urine Ketones 1+ H (Negative) 05/13/20 05/14/20 05/14/20 Range/Units 12:00 05:13 05:13 Hgb 18.6 H (13.0-17.5) gm/dL Hct 54.4 H (39.0-53.0) % MCV 100.3 H (80.0-100.0) fL D-Dimer 1.35 H (<0.60) mg/L FEU Sodium 133 L (137-145) mmol/L Urine Ketones (Negative) Comments: Carotid ultrasound report reviewed Chest x-ray: report reviewed CT scan - chest: report reviewed CT Scan - head: report reviewed Thrombosis Risk Factor Assmnt - Choose All That Apply Any of the Below Risk Factors Present?: Yes Each Factor Represents 1 point: Age 41-60 years Other Risk Factors: Yes Each Risk Factor Represents 3 Points: Family history of DVT/PE Other congenital or acquired thrombophilia - If yes, enter type in comment: No Thrombosis Risk Factor Assessment Total Risk Factor Score: 4 Thrombosis Risk Factor Assessment Level: Moderate Risk Assessment and Plan Assessment: Syncopal episodesconsulted cardiology, possibly likely due to straining with urination Hypertension COPD Current 1 pack a day smoker Alcohol dependence Plan: Syncopal episodeCT head and neckwithout acute changes, CTA of the chest negative, consultation with cardiology cleared Hypertensioncontinue antihypertensives COPDcontinue maintenance inhaler 1 pack-a-day cigarette smokersmoking sensation Alcohol dependencewill follow-up outpatient for alcohol dependence treatment Echocardiogram pending Hopeful discharge today Time with Patient: Greater than 30
--- NOTE | 2020-05-14 10:05 | P.PN ---
Subjective HISTORY OF PRESENTING ILLNESS This is a pleasant 59-year-old male past medical history significant for hypertension, chronic nicotine dependence and daily heavy alcohol use. He denies prior history of coronary artery disease and does not follow in the office with a talent development coordinator. He is seen and examined up ambulating around the room in no acute distress. HEENT denies symptoms of chest pain, shortness of breath, dizziness or palpitations. He has had no further syncopal episodes. Telemetry tracings have been unremarkable revealing persistent sinus mechanism with no acute arrhythmias or significant pauses. Blood pressure 134/85 heart rate 69 afebrile maintaining oxygen saturation on room air. Laboratory data reviewed, WBC 5.8, hemoglobin 18.6, platelets 195, sodium 133, potassium 4.7, creatinine 0.92 and magnesium 2.1. We'll carotid Doppler negative for hemodynamically significant stenosis. CTA negative for pulmonary embolism PHYSICAL EXAMINATION CONSTITUTIONAL: No apparent distress. Appears older than stated age. HEENT: Head is normocephalic. Pupils are equal, round. Sclerae anicteric. Mucous membranes of the mouth are moist. No JVD. No carotid bruit. CHEST EXAMINATION: Course sounding with inspiratory and expiratory wheezes. No chest wall tenderness is noted on palpation or with deep breathing. HEART EXAMINATION: Regular rate and rhythm. S1, S2 heard. No murmurs, gallops or rub. EXTREMITIES: 2+ peripheral pulses, no lower extremity edema and no calf tenderness. ASSESSMENT Syncope Hypertension Chronic nicotine dependence Daily excessive alcohol abuse Medication non-compliance PLAN Stable for discharge from a cardiac perspective. Recommend alcohol cessation. Follow-up in the office with Dr. Hernandez in 2 weeks for further outpatient testing. Nurse Practitioner note has been reviewed, I agree with a documented findings and plan of care. Patient was seen and examined. Objective - Vital Signs Vital signs: Vital Signs Temp 97.8 F 05/14/20 07:32 Pulse 69 05/14/20 07:32 Resp 16 05/14/20 08:00 BP 134/85 05/14/20 07:32 Pulse Ox 99 05/14/20 07:32 Intake & Output 05/13/20 05/14/20 05/14/20 18:59 06:59 18:59 Weight 83.915 kg Other: # Voids 1 2 - Labs CBC & Chem 7: 05/14/20 05:13 05/14/20 05:13 Labs: Abnormal Lab Results - Last 24 Hours (Table) 05/13/20 05/13/20 05/13/20 Range/Units 10:42 11:23 11:47 Hgb 19.0 H 18.6 H (13.0-17.5) gm/dL Hct 57.2 H* 54.6 H (39.0-53.0) % MCV (80.0-100.0) fL D-Dimer (<0.60) mg/L FEU Sodium (137-145) mmol/L Urine Ketones 1+ H (Negative) 05/13/20 05/14/20 05/14/20 Range/Units 12:00 05:13 05:13 Hgb 18.6 H (13.0-17.5) gm/dL Hct 54.4 H (39.0-53.0) % MCV 100.3 H (80.0-100.0) fL D-Dimer 1.35 H (<0.60) mg/L FEU Sodium 133 L (137-145) mmol/L Urine Ketones (Negative)
--- NOTE | 2020-05-14 10:13 | ECHOF ---
Referral Reason:syncope MEASUREMENTS -------- HEIGHT: 157.5 cm WEIGHT: 83.9 kg BP: 112/69 RVIDd: 2.9 cm (< 3.3) IVSd: 1.3 cm (0.6 - 1.1) LVIDd: 4.5 cm (3.9 - 5.3) LVPWd: 1.2 cm (0.6 - 1.1) IVSs: 1.6 cm LVIDs: 2.9 cm LVPWs: 1.6 cm LA Diam: 3.7 cm (2.7 - 3.8) LAESV Index (A-L): 30.24 ml/m Ao Diam: 3.2 cm (2.0 - 3.7) AV Cusp: 1.8 cm (1.5 - 2.6) MV EXCURSION: 11.800 mm (> 18.000) MV EF SLOPE: 49 mm/s (70 - 150) EPSS: 0.9 cm MV E Jadiel: 0.51 m/s MV DecT: 196 ms MV A Jadiel: 0.79 m/s MV E/A Ratio: 0.64 RAP: 5.00 mmHg RVSP: 11.59 mmHg FINDINGS -------- Sinus rhythm. This was a technically adequate study. LV size, wall thickness and systolic function are normal, with an EF greater than 55%. The left racquel tricular size is normal. The right ventricle is normal in size. LA is midly dilated 29-33ml/m2. The right atrial size is normal. The aortic valve is trileaflet, and appears structurally normal. No aortic stenosis or regurgitation. The mitral valve is normal. There is trace mitral regurgitation. The tricuspid valve appears structurally normal. Trace tricuspid regurgitation present. Right racquel tricular systolic pressure is normal at < 35 mmHg. There is no pulmonic regurgitation present. The aortic root size is normal. There is no pericardial effusion. CONCLUSIONS -------- 1. LV size, wall thickness and systolic function are normal, with an EF greater than 55%. 2. LA is midly dilated 29-33ml/m2. 3. The aortic valve is trileaflet, and appears structurally normal. No aortic stenosis or regurgitati on. 4. There is trace mitral regurgitation. 5. Trace tricuspid regurgitation present. 6. There is no pericardial effusion. BIOTECHNICIAN: Lisa Nowak RDCS
[2020-05-14 13:55] VITALS: BP 136/79; PULSE 68; TEMP 97.9
--- NOTE | 2020-05-14 17:52 | P.DS ---
Providers Date of admission: 05/13/20 12:31 Expected date of discharge: 05/14/20 Attending physician: Jose Manuel Cruz Consults: 05/13/20 12:18 Consult Physician Routine Consulting Provider: Evaristo Mithcell Consult Reason/Comments: syncope Do you want consulting provider notified?: Yes Primary care physician: Jose Manuel Cruz Hospital Course: 59-year-old male was admitted to the hospital for 2 syncopal episodes within a two-week period with associated symptoms of nausea, blurred vision and lightheadedness intermittently. Syncopal episode which occurred last Wednesdayleft periorbital ecchymosis and temporal mandibular tenderness .patient had extensive diagnostic workup in the emergency department and throughout the hospital stay. Patient noted to have elevated hemoglobin and hematocrit possibly secondary to years of nicotine dependence in the form of cigarette smoking. CT of the head and neck without contrast no acute changes, CTA of the chest no pulmonary embolism noted echocardiogram found to have a EF greater than 55%, chest x-ray no acute abnormalities patient was seen by cardiology and evaluated and cleared for discharge and to follow-up with primary care within 1- 2 days and cardiology within a two-week period Assessment: Syncopal episode Hypertension COPD Nicotine dependence Alcohol dependence Health Concerns: Alcohol dependence Cigarette smoker Pertinent Studies: Pertinent studies CT of the head without contrastno acute changes noted CT of cervical spine without contrast -no acute changes noted CT of the chestno evidence of pulmonary embolism Echocardiogram - see cardiology dictation Procedures: None performed Patient Condition at Discharge: Stable Plan - Discharge Summary Discharge Rx Participant: Yes New Discharge Prescriptions: Continue lisinopriL [Zestril] 10 mg PO DAILY Tiotropium [place] [Spiriva] 1 cap INHALATION RT-DAILY Albuterol Sulfate [Proair Hfa] 2 puff INHALATION RT-QID PRN PRN Reason: Shortness Of Breath Discharge Medication List Albuterol Sulfate [Proair Hfa] 2 puff INHALATION RT-QID PRN 05/13/20 [History] Tiotropium [place] [Spiriva] 1 cap INHALATION RT-DAILY 05/13/20 [History] lisinopriL [Zestril] 10 mg PO DAILY 05/13/20 [History] Follow up Appointment(s)/Referral(s): Jose Manuel Cruz MD [Primary Care Provider] - 1-2 days Deanna Hernandez MD [STAFF PHYSICIAN] - 2 Weeks Discharge Disposition: HOME SELF-CARE
== END 2020-05-14 17:52 | disposition home or self-care (01) ==
LOC: EC 09:55 → 6NMEDSUR 12:31
PROVIDERS: ADMIT Family Medicine; ATTEND Family Medicine
DX: R55 Syncope and collapse (principal); I10 Essential (primary) hypertension; R11.0 Nausea; R71.8 Other abnormality of red blood cells; J44.9 Chronic obstructive pulmonary disease, unspecified; L29.9 Pruritus, unspecified; K21.9 Gastro-esophageal reflux disease without esophagitis; F10.20 Alcohol dependence, uncomplicated; F17.210 Nicotine dependence, cigarettes, uncomplicated; S00.12XA Contusion of left eyelid and periocular area, initial encounter; Z91.14 Patient's other noncompliance with medication regimen; Z79.899 Other long term (current) drug therapy; Z82.49 Family history of ischemic heart disease and other diseases of the circulatory system; Z80.3 Family history of malignant neoplasm of breast; Z80.1 Family history of malignant neoplasm of trachea, bronchus and lung; X58.XXXA Exposure to other specified factors, initial encounter; Y92.002 Bathroom of unspecified non-institutional (private) residence as the place of occurrence of the external cause
CPT/HCPCS: 99285; 36415; 93005; 93306; 85379; 80053 ×2; 83735 ×2; 84484; 85025 ×2; 85027; 85610; 85730; 81003; 71046; 93880; 72125; 70450; 71275; G0378 ×2; Q9967

== ENCOUNTER → 2021-01-06 | Outpatient (CLI) | payer OTHER | END | disposition home or self-care (01) | LOC: LABWHC1 15:18 | PROVIDERS: ATTEND Nurse Practitioner | DX: Z20.822 Contact with and (suspected) exposure to COVID-19 (principal); J06.9 Acute upper respiratory infection, unspecified | CPT/HCPCS: 87636; C9803 ==

== ENCOUNTER 2022-03-18 07:18 | Day surgery (SDC) | payer OTHER ==
[2022-03-13 11:04] VITALS: BMI 25.7
[~2022-03-18 07:18] MED LIST: LACTATED RINGERS 1,000 ML IV SCH; LIDOCAINE 1% (10MG/ML) FOR IV START INTRADERMA PRN
[2022-03-18 08:59] VITALS: TEMP 97.8
[2022-03-18] MEDS ORDERED: PROPOFOL 10 MG/ML 20 ML VIAL IV ONE (09:28)
--- NOTE | 2022-03-18 09:32 | P.GSHP ---
History of Present Illness H&P Date: 03/18/22 CHIEF COMPLAINT: Colon screen HISTORY OF PRESENT ILLNESS: The patient is a 61-year-old male who presents for colon screen. Lower endoscopy was offered for further evaluation and management. PAST MEDICAL HISTORY: Please see list. PAST SURGICAL HISTORY: Please see list. MEDICATIONS: Please see list. ALLERGIES: Please see list. SOCIAL HISTORY: No illicit drug use FAMILY HISTORY: No reports of Crohn disease or ulcerative colitis. REVIEW OF ORGAN SYSTEMS: CONSTITUTIONAL: No reports of fevers or chills. PHYSICAL EXAM: VITAL SIGNS: Stable GENERAL: Well-developed pleasant in no acute distress. HEENT: No scleral icterus. Extraocular movements grossly intact. Moist buccal mucosa. NECK: Supple without lymphadenopathy. CHEST: Unlabored respirations. Equal bilateral excursions. CARDIOVASCULAR: Regular rate and rhythm. Distal 2+ pulses. ABDOMEN: Soft, nontender, nondistended. MUSCULOSKELETAL: No clubbing, cyanosis, or edema. ASSESSMENT: 1. Colon screen. PLAN: 1. Recommend proceeding with a lower endoscopy Past Medical History Past Medical History: COPD, GERD/Reflux, Hypertension, Syncope Additional Past Medical History / Comment(s): Wheezy at times SOB with exertion at baseline History of Any Multi-Drug Resistant Organisms: None Reported Past Surgical History: No Surgical Hx Reported Additional Past Surgical History / Comment(s): Pt has never had surgery. Past Anesthesia/Blood Transfusion Reactions: No Reported Reaction Additional Past Anesthesia/Blood Transfusion Reaction / Comment(s): Pt has never had surgery. Smoking Status: Current every day smoker - Past Family History Father Family Medical History: Deep Vein Thrombosis (DVT) Mother Family Medical History: Cancer Additional Family Medical History / Comment(s): Mother had lung cancer and breast cancer. Medications and Allergies Home Medications Medication Instructions Recorded Confirmed Type Multivitamins, Thera [Multivitamin 1 tab PO DAILY 03/13/22 03/18/22 History (formulary)] Allergies Allergy/AdvReac Type Severity Reaction Status Date / Time No Known Allergies Allergy Verified 03/18/22 08:46 Surgical - Exam Vital Signs Temp Pulse Resp BP Pulse Ox 97.8 F 76 16 153/91 98 03/18/22 08:45 03/18/22 08:45 03/18/22 08:45 03/18/22 08:45 03/18/22 08:45
--- NOTE | 2022-03-18 10:09 | P.PN ---
Subjective Progress Note Date: 03/18/22 PREOPERATIVE DIAGNOSIS: Abnormal stool study POSTOPERATIVE DIAGNOSIS: Tubular adenoma hepatic flexure Tubular adenoma sigmoid colon Tubular adenoma transverse colon OPERATION: Colonoscopy to the ileocecal valve and appendiceal orifice, cecum Colonoscopy with hot snare polypectomy SURGEON: Denise Chamberlain MD. ANESTHESIA: MAC. INDICATIONS: The patient is an 61-year-old male who presents for his first colonoscopy screening. Benefits and risks were described and informed consent was obtained. DESCRIPTION OF PROCEDURE: The patient had undergone Sutab prep. The patient had been brought into the operating room and laid in the left lateral decubitus position. After adequate intravenous sedation, the rectum was examined with 2% lidocaine jelly. The prostate was unremarkable. External hemorrhoids were encountered. The rectal tone was within normal limits. No lesions were palpated in the rectal vault. An Olympus colonoscope was advanced until the cecum, ileocecal valve and appendiceal orifice were clearly viewed. The prep was poor to fair. No sigmoid diverticulosis was encountered. Colonic polyps were found and removed. No evidence of focal colitis was found. Retroflexion of the scope demonstrated grade 2 internal hemorrhoids without active bleeding or inflammation. The colon was desufflated. The patient had tolerated the procedure well. Withdrawal time was over 6 minutes. FINDINGS: Aronchick preparation quality scale 3 (1-5) Internal hemorrhoids, grade 2 External hemorrhoids, grade 2 No arteriovenous malformations. No sigmoid diverticulosis Removal of 4 polyps: - Snare polypectomy 20 cm from the anal verge, 5 mm tubulovillous adenoma polyp. - Snare polypectomy 30 cm from the anal verge, 4 mm flat villous adenoma polyp. - Snare polypectomy hepatic flexure, 8 mm flat villous adenoma polyp. - Snare polypectomy hepatic flexure, 6 mm flat villous adenoma polyp. No focal colitis. RECOMMENDATIONS: Given severity of tubular adenomas, recommend repeat colonoscopy 2 years, 2023. Objective - Vital Signs Vital signs: Vital Signs Temp 97.8 F 03/18/22 08:45 Pulse 68 03/18/22 09:56 Resp 18 03/18/22 09:56 BP 108/68 03/18/22 09:56 Pulse Ox 97 03/18/22 09:56 FiO2 Intake & Output 03/17/22 03/18/22 03/18/22 18:59 06:59 18:59 Intake Total 400 Balance 400 Weight 81.5 kg Intake: IV 400
[2022-03-18 10:17] VITALS: BP 111/86; PULSE 69; RESP 20
== END 2022-03-18 11:32 | disposition home or self-care (01) ==
LOC: ORWHC2ENDO 07:18
PROVIDERS: ATTEND Surgery Plastic and Reconstructive Surgery
DX: Z12.11 Encounter for screening for malignant neoplasm of colon (principal); D12.3 Benign neoplasm of transverse colon; K64.4 Residual hemorrhoidal skin tags; K64.1 Second degree hemorrhoids; K63.89 Other specified diseases of intestine; J44.9 Chronic obstructive pulmonary disease, unspecified; F17.200 Nicotine dependence, unspecified, uncomplicated; I10 Essential (primary) hypertension; K21.9 Gastro-esophageal reflux disease without esophagitis; Z80.1 Family history of malignant neoplasm of trachea, bronchus and lung; Z80.3 Family history of malignant neoplasm of breast; Z79.899 Other long term (current) drug therapy
CPT/HCPCS: 88305; 45380; 45385; J2704

== ENCOUNTER → 2022-04-28 | Outpatient (CLI) | payer OTHER ==
[2022-04-28 10:22] LABS: Basophils # (A) 0.08 X 10*3/uL (0.00-0.10); Basophils % (A) 1.1 %; Eosinophils # (A) 0.32 X 10*3/uL (0.04-0.35); Eosinophils % (A) 4.3 %; HGB 17.5 g/dL (13.0-17.0); Immature Grans, Automated 0.3 %; Lymphocytes # (A) 2.03 X 10*3/uL (0.90-5.00); Lymphocytes % (A) 27.2 %; MCHC 33.7 g/dL (32.0-37.0); MCV 97.9 fL (80.0-97.0); Monocytes # (A) 0.82 X 10*3/uL (0.20-1.00); NRBC Per 100 WBC 0 /100 WBCS (0.0-0.0); Neutrophils % (A) 56.1 %; Platelet Count 239 X 10*3/uL (140-440); RBC 5.31 X 10*6/uL (4.40-5.60); RDW 12.1 % (11.5-14.5); WBC 7.47 X 10*3/uL (4.50-10.00)
[2022-04-28 10:50] LABS: ALT 24 U/L (10-49); AST 25 U/L (14-35); African American GFR (CKD) 104.9 (60.0-200.0); Albumin 4.3 g/dL (3.8-4.9); Albumin/Globulin Ratio 1.77 (1.60-3.17); Alkaline Phosphatase 72 U/L (41-126); Blood Urea Nitrogen 13.5 mg/dL (9.0-27.0); Calcium 9.1 mg/dL (8.7-10.3); Carbon Dioxide 28.9 mmol/L (20.0-27.5); Chloride 104 mmol/L (96-109); Chol/HDL Ratio 2.36 Ratio; Globulin 2.5 g/dL (1.6-3.3); Glucose 90 mg/dL (70-110); LDL Cholesterol,Calculated 86.3 mg/dL (0.0-131.0); Non-African American GFR(CKD) 90.5 (60.0-200.0); Potassium 4.9 mmol/L (3.5-5.5); Sodium 141 mmol/L (135-145); Total Protein 6.8 g/dL (6.2-8.2); VLDL Calculation 8.06 mg/dL (5.00-40.00)
== END | disposition home or self-care (01) ==
LOC: LABWHC1 07:09
PROVIDERS: ATTEND Family Medicine
DX: Z12.5 Encounter for screening for malignant neoplasm of prostate (principal); R03.0 Elevated blood-pressure reading, without diagnosis of hypertension
CPT/HCPCS: 36415; 80053; 80061; 84153; 85025

== ENCOUNTER → 2023-05-14 | Outpatient (CLI) | payer OTHER ==
--- NOTE | 2023-05-14 09:40 | XR ---
EXAMINATION TYPE: XR chest 2V DATE OF EXAM: 05/14/2023 9:19 AM CLINICAL INDICATION:Male, 62 years old with history of J44.9 CHR OBSTRUCTIE PULMONARY DISEASE; [facility] COMPARISON: Chest radiographs from 05/13/2020 TECHNIQUE: XR chest 2V Frontal and lateral views of the chest. FINDINGS: Lungs/Pleura: There is no evidence of pleural effusion, focal consolidation, or pneumothorax. Pulmonary vascularity: Unremarkable. Heart/mediastinum: Cardiomediastinal silhouette is unremarkable. Musculoskeletal: No acute osseous pathology. IMPRESSION: No acute cardiopulmonary disease/process.
[2023-05-14 15:08] LABS: Basophils # (A) 0.06 X 10*3/uL (0.00-0.10); Eosinophils # (A) 0.07 X 10*3/uL (0.04-0.35); Eosinophils % (A) 1.2 %; HCT 53.2 % (39.6-50.0); HGB 17.9 g/dL (13.0-17.0); MCH 33.3 pg (27.0-32.0); MCHC 33.6 g/dL (32.0-37.0); MCV 99.1 FL (80.0-97.0); Mean Platelet Volume 10.2 FL (9.5-12.2); Monocytes # (A) 0.81 X 10*3/uL (0.20-1.00); Monocytes % (A) 14.2 %; NRBC Per 100 WBC 0 X 10*3/uL (0.00-0.01); Neutrophils # (A) 3.17 X 10*3/uL (1.80-7.70); Neutrophils % (A) 55.4 %; Platelet Count 268 X 10*3/uL (140-440); RBC 5.37 X 10*6/uL (4.40-5.60); RDW 13.2 % (11.5-14.5); WBC 5.72 X 10*3/uL (4.50-10.00)
[2023-05-14 15:14] LABS: ALT 19 U/L (10-49); AST 17 U/L (14-35); Albumin 4.4 g/dL (3.8-4.9); Albumin/Globulin Ratio 1.76 Ratio (1.60-3.17); Alkaline Phosphatase 70 U/L (41-126); BUN/Creat Ratio 13.78 Ratio (12.00-20.00); Blood Urea Nitrogen 12.4 mg/dL (9.0-27.0); Calcium 9.9 mg/dL (8.7-10.3); Carbon Dioxide 28.3 mmol/L (21.6-31.8); Chloride 102 mmol/L (96-109); Chol/HDL Ratio 2.37 Ratio; Globulin 2.5 g/dL (1.6-3.3); Glucose 88 mg/dL (70-110); LDL Cholesterol,Calculated 82.8 mg/dL (0.0-131.0); Potassium 5.1 mmol/L (3.5-5.5); Prostate Specific Antigen 0.61 ng/mL (0.000-4.500); Sodium 140 mmol/L (135-145); Total Bilirubin 0.6 mg/dL (0.3-1.2); Total Protein 6.9 g/dL (6.2-8.2); VLDL Calculation 10.44 mg/dL (5.00-40.00)
[2023-05-14 17:36] LABS: HIV 2 AB Non-Reactive (Non-Reactive); HIV AB P24 Non-Reactive (Non-Reactive); HIV P24 AG Non-Reactive (Non-Reactive)
== END | disposition home or self-care (01) ==
LOC: LABWHC1 08:38
PROVIDERS: ATTEND Family Medicine
DX: Z00.00 Encounter for general adult medical examination without abnormal findings (principal); Z11.4 Encounter for screening for human immunodeficiency virus [HIV]; Z12.5 Encounter for screening for malignant neoplasm of prostate; J44.9 Chronic obstructive pulmonary disease, unspecified
CPT/HCPCS: 36415; 71046; 80053; 80061; 84153; 84443; 85025; 87390

== ENCOUNTER → 2023-08-16 | Outpatient (CLI) | payer OTHER ==
--- NOTE | 2023-08-16 09:03 | XR ---
EXAMINATION TYPE: XR ribs RT w pa chest xray DATE OF EXAM: 08/16/2023 8:49 AM CLINICAL INDICATION:Male, 62 years old with history of R07.81 pleurodynia; [facility] COMPARISON: 05/14/2023 TECHNIQUE: XR ribs RT w pa chest xray; Frontal and oblique views of the ribs with frontal chest radio graph. FINDINGS/IMPRESSION: Small cortical irregularity involving the posterior aspect of ribs 10 and 11 possibly representing he aling fractures.
== END | disposition home or self-care (01) ==
LOC: RADXRMAIN 08:34
PROVIDERS: ATTEND Family Medicine
DX: R07.81 Pleurodynia (principal)

== ENCOUNTER 2024-02-03 08:38 | Day surgery (SDC) | payer OTHER ==
[2024-02-03 09:04] VITALS: TEMP 98.2
[2024-02-03] MEDS: IV FLUID CONTINUATION 1,000 ML IV ONE (09:05)
[2024-02-03] MEDS: LACTATED RINGERS 1,000 ML IV SCH (09:12)
[2024-02-03] MEDS: LIDOCAINE 1% (10MG/ML) FOR IV START INTRADERMA STA (09:13)
[2024-02-03] MEDS ORDERED: PROPOFOL 10 MG/ML 20 ML VIAL IV ONE (09:51)
[2024-02-03] MEDS ORDERED: LIDOCAINE 1% INJ 10MG/ML (20 ML MDV) ONE (09:51)
--- NOTE | 2024-02-03 09:55 | P.GSHP ---
History of Present Illness H&P Date: 02/03/24 CHIEF COMPLAINT: Colon screen HISTORY OF PRESENT ILLNESS: The patient is a 63-year-old male who presents for colon screen. Lower endoscopy was offered for further evaluation and management. PAST MEDICAL HISTORY: Please see list. PAST SURGICAL HISTORY: Please see list. MEDICATIONS: Please see list. ALLERGIES: Please see list. SOCIAL HISTORY: No illicit drug use FAMILY HISTORY: No reports of Crohn disease or ulcerative colitis. REVIEW OF ORGAN SYSTEMS: CONSTITUTIONAL: No reports of fevers or chills. PHYSICAL EXAM: VITAL SIGNS: Stable GENERAL: Well-developed pleasant in no acute distress. HEENT: No scleral icterus. Extraocular movements grossly intact. Moist buccal mucosa. NECK: Supple without lymphadenopathy. CHEST: Unlabored respirations. Equal bilateral excursions. CARDIOVASCULAR: Regular rate and rhythm. Distal 2+ pulses. ABDOMEN: Soft, nontender, nondistended. MUSCULOSKELETAL: No clubbing, cyanosis, or edema. ASSESSMENT: 1. Colon screen. PLAN: 1. Recommend proceeding with a lower endoscopy Past Medical History Past Medical History: COPD, GERD/Reflux, Hypertension Additional Past Medical History / Comment(s): Wheezy at times SOB with exertion at baseline, History of Any Multi-Drug Resistant Organisms: None Reported Past Surgical History: No Surgical Hx Reported Additional Past Surgical History / Comment(s): Pt has never had surgery. Past Anesthesia/Blood Transfusion Reactions: No Reported Reaction Additional Past Anesthesia/Blood Transfusion Reaction / Comment(s): Pt has never had surgery. Smoking Status: Current every day smoker - Past Family History Father Family Medical History: Deep Vein Thrombosis (DVT) Mother Family Medical History: Cancer Additional Family Medical History / Comment(s): Mother had lung cancer and breast cancer. Medications and Allergies Home Medications Medication Instructions Recorded Confirmed Type Multivitamins, Thera [Multivitamin 1 tab PO DAILY 03/13/22 02/01/24 History (formulary)] Allergies Allergy/AdvReac Type Severity Reaction Status Date / Time No Known Allergies Allergy Verified 02/03/24 08:58 Surgical - Exam Vital Signs Temp Pulse Resp BP Pulse Ox 98.2 F 72 16 159/89 98 02/03/24 09:02 02/03/24 09:02 02/03/24 09:02 02/03/24 09:02 02/03/24 09:02
--- NOTE | 2024-02-03 10:31 | P.PCN ---
Date of Procedure: 02/03/24 Description of Procedure: PREOPERATIVE DIAGNOSIS: Personal history of colon polyps Family history malignant colon polyps Colonoscopy screening POSTOPERATIVE DIAGNOSIS: Tubular adenoma transverse colon Sigmoid diverticulosis Internal hemorrhoids, grade 2 Poor prep OPERATION: Colonoscopy to the ileocecal valve and appendiceal orifice, cecum Colonoscopy with hot snare polypectomy SURGEON: Denise Chamberlain MD. ANESTHESIA: MAC. INDICATIONS: The patient is an 63-year-old male who presents family history of malignant colon polyps and personal history of colon polyps. Last colonoscopy 5 years. Benefits and risks were described and informed consent was obtained. DESCRIPTION OF PROCEDURE: The patient had undergone GoLytely prep. The patient had been brought into the operating room and laid in the left lateral decubitus position. After adequate intravenous sedation, the rectum was examined with 2% lidocaine jelly. The prostate was unremarkable. External hemorrhoids were encountered. The rectal tone was within normal limits. No lesions were palpated in the rectal vault. An Olympus colonoscope was advanced until the cecum, ileocecal valve and appendiceal orifice were clearly viewed. The prep was poor. Few sigmoid diverticulosis was encountered. Colonic polyps were found and removed. No evidence of focal colitis was found. Retroflexion of the scope demonstrated grade 2 internal hemorrhoids without active bleeding or inflammation. The colon was desufflated. The patient had tolerated the procedure well. Withdrawal time was over 6 minutes. FINDINGS: Aronchick preparation quality scale 3+ (1-5) Internal hemorrhoids, grade 2 External hemorrhoids, grade 2. No arteriovenous malformations. Poor prep limiting view of smaller polyps. Sigmoid diverticulosis, few Removal of 1 polyps: - Snare polypectomy mid transverse colon, 10 mm tubulovillous adenoma No focal colitis. RECOMMENDATIONS: Given severity of tubular adenomas, recommend repeat colonoscopy 2024 Patient had very poor prep limiting view of mucosa recommending 2-day prep Plan - Discharge Summary Discharge Rx Participant: No New Discharge Prescriptions: Continue Multivitamins, Thera [Multivitamin (formulary)] 1 tab PO DAILY Discharge Medication List Multivitamins, Thera [Multivitamin (formulary)] 1 tab PO DAILY 03/13/22 [History] Patient Instructions/Handouts: Colorectal Polyps (GEN), Diverticulosis (DC) Activity/Diet/Wound Care/Special Instructions: Repeat colonoscopy 2024 due to poor prep. Will need 2-day colon prep Discharge Disposition: HOME SELF-CARE
[2024-02-03 11:29] VITALS: BP 119/79; PULSE 56; RESP 18
== END 2024-02-03 11:01 | disposition home or self-care (01) ==
LOC: ORWHC2ENDO 08:38
PROVIDERS: ATTEND Surgery Plastic and Reconstructive Surgery
DX: Z12.11 Encounter for screening for malignant neoplasm of colon (principal); D12.3 Benign neoplasm of transverse colon; K57.30 Diverticulosis of large intestine without perforation or abscess without bleeding; K64.1 Second degree hemorrhoids; K64.4 Residual hemorrhoidal skin tags; Z86.0100 Personal history of colon polyps, unspecified; Z80.0 Family history of malignant neoplasm of digestive organs; J44.9 Chronic obstructive pulmonary disease, unspecified; F17.210 Nicotine dependence, cigarettes, uncomplicated; Z79.899 Other long term (current) drug therapy
CPT/HCPCS: 88305; 45385; J2003; J2704